=== PATIENT | male | born 1975 | race African-American/Black ===

== ENCOUNTER 2017-12-18 08:12 | Emergency (ER) | payer BC ==
[~2017-12-18] VITALS: Ht 200.7 cm; Wt 140.6 kg
[~2017-12-18 08:12] MED LIST: ULTRAM50 MG PO
[2017-12-18] MEDS ORDERED: GENTAMICIN SULFATE 0.3% OP 5 ML BTL ONE (08:41)
[2017-12-18] MEDS ORDERED: GENTAMICIN SULFATE 0.3% OPTH OINT 3.5GM TUBE ONE (08:43)
[2017-12-18] MEDS ORDERED: GENTAK3.5 GM OP/OT (08:45)
[2017-12-18] MEDS ORDERED: GENTAMICIN SULFATE 0.3% OPTH OINT 3.5GM TUBE OP ONE (09:00)
== END 2017-12-18 09:06 | disposition home or self-care (01) ==
LOC: ER 08:12
DX: H01.001 Unspecified blepharitis right upper eyelid (principal)
CPT/HCPCS: 99282

== ENCOUNTER 2022-07-18 08:16 | Emergency (ER) | payer BC ==
[~2022-07-18] VITALS: Ht 200.7 cm; Wt 156.1 kg
[~2022-07-18 08:16] MED LIST changes: +GENTAK3.5 GM OP/OT
[2022-07-18] MEDS ORDERED: TOBRAMYCIN SULFA5 ML OS (09:22)
[2022-07-18] MEDS ORDERED: KETOROLAC60 MG/2 ML OS (09:24)
== END 2022-07-18 09:59 | disposition home or self-care (01) ==
LOC: FSED 08:37
DX: H10.9 Unspecified conjunctivitis (principal); R03.0 Elevated blood-pressure reading, without diagnosis of hypertension
CPT/HCPCS: 99283